=== PATIENT | female | born 1960 ===

== ENCOUNTER 2022-02-16 15:15 | Outpatient (REF) | payer MEDICAID, SELFPAY ==
--- NOTE | 2022-02-16 17:01 | MHC.AU.HFU ---
Hearing Instrument Follow-Up- Binaural Date of Visit: 02/16/22 Right Ear: Widex hearing aids Dispensed By: [facility] Left Ear: Widex hearing aids Dispensed By: [facility] Follow-Up Summary: The patient is here today for tinnitus counseling. She is followed by [facility] for her ENT and audiological care. We spent some time discussing her bothersome tinnitus. She states it is bothersome when she does not wear her hearing aids, and that she does not always like wearing her hearing aids. I counseled the patient on the importance of consistent hearing aid use and the role that it plays in tinnitus management. I also discussed use of noise machines/fans when not wearing the hearing aids for masking. The patient will try to wear her hearing aids more consistently. It is noted that the patient has Medicaid so I will let the patient know that she can be seen at our facility for hearing aid services moving forward, and to further discuss tinnitus or for hearing aid programming as needed. Diagnosis Code(s): Primary Diagnosis: H90.3 Bilateral Sensorineural Hearing Loss Secondary Diagnosis: H93.13 Tinnitus, Bilateral Signature: Provider: Farhana Maharaj, [facility]
== END 2022-02-16 15:16 | disposition home or self-care (01) ==
LOC: HO.SH 15:15
PROVIDERS: Visit Provider Internal Medicine
DX: Z13.89 Encounter for screening for other disorder (principal)